=== PATIENT | female | born 1965 | race Hispanic/Latino ===

== ENCOUNTER 2020-09-29 21:06 | Emergency (ER) | payer SELFPAY ==
[2020-09-29] MEDS ORDERED: HYDROcodone/Acetaminophen 5/325 mg Tablet ONE (21:51)
[2020-09-29] MEDS ORDERED: Ibuprofen 600 MG TAB ONE (21:51)
[2020-09-29] MEDS ORDERED: Lisinopril 10 MG TAB ONE (21:51)
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
== END 2020-09-29 22:33 | disposition home or self-care (01) ==
LOC: MADERS 21:06
DX: S39.012A Strain of muscle, fascia and tendon of lower back, initial encounter (principal); S20.211A Contusion of right front wall of thorax, initial encounter; I10 Essential (primary) hypertension; Z79.899 Other long term (current) drug therapy; V89.2XXA Person injured in unspecified motor-vehicle accident, traffic, initial encounter
CPT/HCPCS: 71046; 71120

== ENCOUNTER 2020-10-13 18:08 | Emergency (ER) | payer SELFPAY ==
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
== END 2020-10-13 19:27 | disposition home or self-care (01) ==
LOC: MADERS 18:08
DX: M54.5 Low back pain (principal); M53.3 Sacrococcygeal disorders, not elsewhere classified; I10 Essential (primary) hypertension; Z79.899 Other long term (current) drug therapy; V89.2XXA Person injured in unspecified motor-vehicle accident, traffic, initial encounter
CPT/HCPCS: 72100